=== PATIENT | male | born 1960 | race Caucasian/White ===

== ENCOUNTER 2019-04-27 11:24 | Emergency (ER) | payer BC ==
[2019-04-27] MEDS ORDERED: Morphine 4 MG/ML Syringe IM ONE (11:34)
[2019-04-27] MEDS ORDERED: Promethazine 25 MG/ML SDV IM ONE (11:34)
--- NOTE | 2019-04-27 11:45 | EDM.PDOC ---
ED HPI GENERAL MEDICAL PROBLEM - General Chief Complaint: Upper Extremity Injury/Pain Stated Complaint: L SIDE SHOULDER AND NECK PAIN Time Seen by Provider: 04/27/19 11:27 Source of Information: Reports: Patient, Family History Limitations: Reports: No Limitations - History of Present Illness INITIAL COMMENTS - FREE TEXT/NARRATIVE: Patient's unfortunate 59-year-old male who presents emergency Department today with complaint of left neck pain that radiates to his left elbow and hand. Patient reports that the symptoms started 2 days ago and were mild at that time and they have progressively worsened since. Patient reports that since that time he has had increasing pain to the left side of his neck and down his left arm. Patient reports the pain become unbearable at this point he was seen yesterday at a walk-in clinic and was given a prescription for Flexeril and reports she's had no improvement in symptoms since. No fever no chills no nausea no vomiting no hemiplegia Right Shoulder Pain Score (Numeric/FACES): 10 - Related Data Allergies Allergy/AdvReac Type Severity Reaction Status Date / Time No Known Allergies Allergy Verified 04/27/19 11:33 Home Meds: Home Meds Acetaminophen with Codeine [Tylenol with Codeine #3 Tablet] 1 each PO Q4H PRN # 20 tablet 04/27/19 [Rx] Cyclobenzaprine [Flexeril] 5 mg PO TID 04/27/19 [History] Meloxicam 15 mg PO DAILY 04/27/19 [History] Past Medical History Musculoskeletal History: Reports: Other (See Below) Other Musculoskeletal History: left wrist surgery, left thumb amputation - Past Surgical History GI Surgical History: Reports: Cholecystectomy Social & Family History - Tobacco Use Smoking Status *Q: Never Smoker Second Hand Smoke Exposure: No - Caffeine Use Caffeine Use: Reports: Soda - Recreational Drug Use Recreational Drug Use: No Review of Systems - Review of Systems Review Of Systems: See Below Constitutional: Denies: Chills, Fever Musculoskeletal: Reports: Neck Pain, Shoulder Pain, Arm Pain. Denies: Joint Pain ED EXAM, GENERAL - Physical Exam Exam: See Below Exam Limited By: No Limitations General Appearance: Alert, WD/WN, Moderate Distress Ears: Normal External Exam, Normal Canal, Hearing Grossly Normal, Normal TMs Nose: Normal Inspection, Normal Mucosa, No Blood Throat/Mouth: Normal Inspection, Normal Lips, Normal Teeth, Normal Gums, Normal Oropharynx, Normal Voice, No Airway Compromise Head: Atraumatic, Normocephalic Neck: Other (Moderate tenderness to left paraspinous muscles see 3 through C7 with tenderness that extends over trapezius and any pressure to the C4 paraspinous muscle increases pain that radiates down to left elbow) Cardiovascular: Normal Peripheral Pulses, Regular Rate, Rhythm, No Edema, No Gallop, No JVD, No Murmur, No Rub GI/Abdominal: Normal Bowel Sounds, Soft, Non-Tender, No Organomegaly, No Distention, No Abnormal Bruit, No Mass Back Exam: Normal Inspection Extremities: Normal Inspection, Normal Range of Motion, Non-Tender, Normal Capillary Refill, No Pedal Edema Neurological: Alert Skin Exam: Warm, Dry, No Rash Course - Vital Signs Last Recorded V/S: Last Vital Signs Temp 96.7 F 04/27/19 11:31 Pulse 81 04/27/19 11:31 Resp 20 04/27/19 11:31 BP 137/94 H 04/27/19 11:31 Pulse Ox 99 04/27/19 11:31 - Orders/Labs/Meds Orders: Active Orders 24 hr Category Date Time Status Cervical Spine Comp w Obliques [CR] Stat Exams 04/27/19 11:35 Taken Meds: Medications Discontinued Medications Generic Name Dose Route Start Last Admin Trade Name Hemant PRN Reason Stop Dose Admin Morphine Sulfate 4 mg 04/27/19 11:34 04/27/19 11:49 Morphine IM 04/27/19 11:35 4 mg ONETIME ONE Administration Promethazine HCl 25 mg 04/27/19 11:34 04/27/19 11:48 Phenergan IM 04/27/19 11:35 25 mg ONETIME ONE Administration - Re-Assessments/Exams Free Text/Narrative Re-Assessment/Exam: 04/27/19 12:01 C-spine interpreted by me NAD Departure - Departure Time of Disposition: 12:01 Disposition: Home, Self-Care 01 Clinical Impression: Cervical radiculopathy - Discharge Information Prescriptions: Acetaminophen with Codeine [Tylenol with Codeine #3 Tablet] 1 each PO Q4H PRN # 20 tablet PRN Reason: Pain Instructions: Radicular Pain Referrals: Abhishek Boss MD [Primary Care Provider] - Forms: ED Department Discharge Additional Instructions: Home, rest, heating pad 20 minutes at a time 3-4 times daily, no lifting greater than 10 pounds for one week, return as needed for worsening condition Sepsis Event Note - Evaluation Sepsis Screening Result: No Definite Risk - Focused Exam Vital Signs: Vital Signs Temp Pulse Resp BP Pulse Ox 04/27/19 11:31 96.7 F 81 20 137/94 H 99 Date Exam was Performed: 04/27/19 Time Exam was Performed: 12:01 - My Orders Last 24 Hours: My Active Orders 04/27/19 11:35 Cervical Spine Comp w Obliques [CR] Stat - Assessment/Plan Last 24 Hours: My Active Orders 04/27/19 11:35 Cervical Spine Comp w Obliques [CR] Stat
--- NOTE | 2019-04-28 09:29 | CR ---
Cervical spine: AP, lateral, oblique and odontoid views of the cervical spine were obtained. Comparison: No prior cervical spine imaging. Ligamentum nuchal calcification is seen. Mild disc space narrowing is noted at C5-C6. Anterior osteophytes noted at C4-C5 and C5-C6. Vertebral body heights are maintained. Prevertebral soft tissues are normal. Slight spurring is noted into the left C5-C6 neural foramina. No right-sided neural foraminal stenosis is seen. Impression: 1. Degenerative change as noted above. 2. Ligamentum nuchal calcification. Diagnostic code #2 This report was dictated in [place] Standard Time
== END 2019-04-27 12:13 | disposition home or self-care (01) ==
LOC: JD.ED 11:24
DX: M54.12 Radiculopathy, cervical region (principal)
CPT/HCPCS: 72050; 96372; 99283; J2270; J2550

== ENCOUNTER 2024-02-10 18:06 | Emergency (ER) | payer BC | END 2024-02-10 19:37 | disposition home or self-care (01) | LOC: JD.ED 18:06 | DX: S61.011A Laceration without foreign body of right thumb without damage to nail, initial encounter (principal); Z90.49 Acquired absence of other specified parts of digestive tract; Z79.899 Other long term (current) drug therapy; W29.8XXA Contact with other powered hand tools and household machinery, initial encounter | CPT/HCPCS: 12001; 99282 ==